=== PATIENT | female | born 1950 | race Caucasian/White ===

== ENCOUNTER → 2017-02-28 | Day surgery (SDC) | payer BC | END | disposition home or self-care (01) | LOC: SDCH 08:57 | DX: Z12.11 Encounter for screening for malignant neoplasm of colon (principal); K57.30 Diverticulosis of large intestine without perforation or abscess without bleeding; Z86.010 Personal history of colon polyps; D12.4 Benign neoplasm of descending colon; I10 Essential (primary) hypertension; Z88.2 Allergy status to sulfonamides; M25.50 Pain in unspecified joint; Z79.899 Other long term (current) drug therapy; Z87.01 Personal history of pneumonia (recurrent); R19.7 Diarrhea, unspecified; E07.9 Disorder of thyroid, unspecified; F41.9 Anxiety disorder, unspecified; F32.9 Major depressive disorder, single episode, unspecified; E66.9 Obesity, unspecified | CPT/HCPCS: J2704 ==